=== PATIENT | female | born 1955 | race African-American/Black ===

== ENCOUNTER 2020-10-08 14:56 | Outpatient (CLI) | payer OTHER ==
--- NOTE | 2020-10-08 19:54 | MRI ---
EXAM: LEFT FOOT MRI WITHOUT IV CONTRAST: 10/08/20 HISTORY: Hallux osteomyelitis, infection for several weeks. FINDINGS: There is marked soft tissue swelling of the great toe. Abnormal STIR hyperintensity and T1 hypointens ity changes involving the distal phalanx of the great toe with some associated bony destructive guerrero es. There is some fluid density surrounding the abnormal distal phalanx up to approximately 0.3 cm in thickness which may well represent some abscess fluid. There is some questionable subtle STIR hyperi ntensity in the distal aspect of the proximal phalanx of the great toe with no significant T1 hypoint ensity possibly minimal or early nonspecific osteitis. There are generalized degenerative and osteoar throsis changes of the foot. Diffuse subcutaneous edema and swelling of the foot, hindfoot, and ankle . The intrinsic muscles of the foot demonstrate marked T2 hyperintensity, nonspecific, but this certa inly can be seen in diabetes mellitus and could be related to nonspecific myositis versus denervation change. Achilles and plantar calcaneal enthesophytic changes. The remainder of the hindfoot shows no other osseous abnormality or acute internal derangement. IMPRESSION: Evidence for acute osteomyelitis involving the distal phalanx of the great toe with an area of surrou nding fluid density probably representing associated abscess. Possible mild associated nonspecific os teitis of the distal aspect of the proximal phalanx of the great toe. Extensive diffuse subcutaneous edema and swelling. Increased T2 hyperintense intrinsic muscles of the foot, nonspecific. Osteoarthrosis and degenerative changes. POS: OFF
== END 2020-10-08 14:57 | disposition home or self-care (01) ==
LOC: BICMRI 14:56
PROVIDERS: ATTEND Podiatrist Foot & Ankle Surgery
DX: M86.172 Other acute osteomyelitis, left ankle and foot (principal); R60.0 Localized edema; M19.072 Primary osteoarthritis, left ankle and foot; R93.7 Abnormal findings on diagnostic imaging of other parts of musculoskeletal system; M79.89 Other specified soft tissue disorders
CPT/HCPCS: 82565